=== PATIENT | female | born 1980 | race African-American/Black ===

== ENCOUNTER 2024-03-22 18:29 | Emergency (ER) | payer OTHER, MEDICAID ==
[~2024-03-22] VITALS: Ht 160 cm; Wt 77.0 kg
[2024-03-22 18:35] VITALS: TEMP 98.2; O2SAT 100
[2024-03-22] MEDS ORDERED: TETANUS, DIPHTHERIA, PERTUSSIS VAC/PF 0.5ML (>10YR OLD) IM ONE (18:45)
[2024-03-22] MEDS: LIDOCAINE HCL/PF 1% 10 MG/ML 5ML VIAL INFIL ONE (18:45)
[2024-03-22] MEDS: IBUPROFEN 600MG TABLET PO ONE (18:55)
[2024-03-22] MEDS: ACETAMINOPHEN 325MG TABLET PO ONE (18:56)
[2024-03-22] MEDS: BACITRACIN ZINC OINT UDPKT TOP ONE (20:57)
[2024-03-22] MEDS: TETANUS, DIPHTHERIA, PERTUSSIS VAC/PF 0.5ML (>10YR OLD) IM ONE (21:00)
[2024-03-22] MEDS: HYDROCODONE/ACETAMINOPHEN 5/325MG TABLET PO ONE (21:59)
[2024-03-22 22:06] VITALS: BP 130/70; PULSE 80; RESP 15
== END 2024-03-22 22:07 | disposition home or self-care (01) ==
LOC: ER 18:29
DX: S01.01XA Laceration without foreign body of scalp, initial encounter (principal); Y08.89XA Assault by other specified means, initial encounter; Y93.89 Activity, other specified; Y92.89 Other specified places as the place of occurrence of the external cause; Y99.8 Other external cause status
CPT/HCPCS: 70450; 90715; 12001; 90471; 99285; J3490; Z7610 ×3